=== PATIENT | male | born 1930 | race Caucasian/White ===

== ENCOUNTER 2017-09-30 08:38 | Emergency (ER) | payer MEDICARE, BC ==
[~2017-09-30] VITALS: Ht 172.7 cm; Wt 75.9 kg
[2017-09-30 08:56] VITALS: BP 122/63; PULSE 63; RESP 16; TEMP 97.8; O2SAT 95
[2017-09-30] MEDS ORDERED: ASPI1TAB57 PO (09:13)
[2017-09-30] MEDS ORDERED: VITAMIN D PO (09:13)
[2017-09-30] MEDS ORDERED: LOVA20TA PO (09:13)
[2017-09-30] MEDS ORDERED: TRIA1TAB5 PO (09:13)
--- NOTE | 2017-09-30 09:47 | PD ---
HPI Chief Complaint: GI Complaint Time Seen by Provider: 09:00 Travel History International Travel<30 days: No Contact w/Intl Traveler<30days: No Traveled to known affect area: No History of Present Illness HPI This 86-year-old male is been having loose stools for the last 12 days. He says he has had 3 or 4 bowel movements daily vitamin Janett than usual. She does not describe watery stools. Says that in 2010 he had similar symptoms he saw Dr. Nunez at that time and had a Gastrografin enema which seemed to fix them. In 2010 he had a barium enema. He gets regular colonoscopies and had his last one in 2011 and is had a sigmoid colectomy because of diverticulitis. He is not having abdominal pain. He has not had any blood or pus in the stool. He has not been on any antibiotics recently PFSH Past Medical History Hx Anticoagulant Therapy: Yes (BABY ASA 3 TIMES A WEEK) Cardiovascular Problems: Yes (HTN, CHOL) High Cholesterol: Yes Diabetes: No Patient Takes Glucophage: No Diminished Hearing: No Hypertension: Yes Tetanus Vaccination: < 5 Years Past Surgical History Other Surgery: Yes (INGUINAL HERNIA AND SIGMOID COLECTOMY) Social History Alcohol Use: Yes (RARE) Tobacco Use: No Substance Use: No Allergies-Medications Reported Meds & Prescriptions Reported Meds & Active Scripts Active Reported [Vitamin D] 50,000 PO Aspirin 81 (Aspirin) 81 Mg Tabdr 81 Mg PO DIRECTED Triamterene-Hydrochlorothiazide 75-50 Mg Tab 0.5 Tab PO DAILY Lovastatin 20 Mg Tab 20 Mg PO DAILY Review of Systems Except as stated in HPI: all other systems reviewed are Neg General / Constitutional: No: Fever, Chills Eyes: No: Diploplia HENT: No: Headaches Cardiovascular: No: Chest Pain or Discomfort Gastrointestinal: Positive: Diarrhea, No: Nausea, Vomiting, Abdominal Pain, Constipation Skin: No Rash, No Itching Endocrine: No: Heat Intolerance, Cold Intolerance Hematologic/Lymphatic: No: Easy Bruising Physical Exam Narrative GENERAL: [-] SKIN: Focused skin assessment warm/dry. HEAD: Atraumatic. Normocephalic. EYES: Pupils equal and round. No scleral icterus. No injection or drainage. ENT: No nasal bleeding or discharge. Mucous membranes pink and moist. NECK: Trachea midline. No JVD. CARDIOVASCULAR: Regular rate and rhythm. No murmur appreciated. RESPIRATORY: No accessory muscle use. Clear to auscultation. Breath sounds equal bilaterally. GASTROINTESTINAL: Abdomen soft, non-tender, nondistended. Hepatic and splenic margins not palpable. On rectal exam there is no stool present for guaiac testing. There are no masses palpable MUSCULOSKELETAL: No obvious deformities. No clubbing. No cyanosis. No edema. NEUROLOGICAL: Awake and alert. No obvious cranial nerve deficits. Motor grossly within normal limits. Normal speech. PSYCHIATRIC: Appropriate mood and affect; insight and judgment normal. Data Data Last Documented VS Vital Signs Date Time Temp Pulse Resp B/P (MAP) Pulse Ox O2 Delivery O2 Flow Rate FiO2 09/30/17 08:56 97.8 63 16 122/63 (82) 95 Room Air Orders Orders Abdomen, Kub Only (09/30/17 09:42) MDM Medical Decision Making Medical Screen Exam Complete: Yes Emergency Medical Condition: Yes Medical Record Reviewed: Yes Differential Diagnosis Differential includes constipation, enteritis, Narrative Course Patient has previously had these symptoms secondary to impaction and was having stools around the impaction. A KUB was done and does not show any evidence of impaction and clinically I do not think this is an impaction. She is having 3- 4 loose stools per day with his history of impaction I'm very reluctant to recommend Imodium. I think he should wait and I suspect this will normalize Diagnosis Primary Impression: Frequent bowel movements Disposition: 01 DISCHARGE HOME Condition: Stable Skyler Pierce MD Sep 30, 2017 09:47
--- NOTE | 2017-09-30 10:39 | RADRPT ---
EXAM DATE/TIME: 09/30/2017 10:10 [facility] COMPARISON: No previous studies available for comparison. INDICATIONS : Runny stools, no normal bowel movement x 1 week. MEDICAL HISTORY : Diverticulitis. SURGICAL HISTORY : laparscopic colectomy ENCOUNTER: Initial ACUITY: 1 week PAIN SCORE: 0/10 LOCATION: Bilateral abdomen FINDINGS: Supine view of the abdomen was performed. The abdominal bowel gas pattern is normal. No abnormal ma sses, calcifications, or organomegaly is seen. Degenerative changes lower lumbar spine.. CONCLUSION: Nonspecific bowel gas pattern. There is no evidence for obstruction. Degenerative c hanges lumbar spine. Harsh Gardner MD FACR on September 30, 2017 at 10:36 Board Certified Radiologist. This report was verified electronically.
[2017-09-30 11:53] VITALS: BP 131/73
== END 2017-09-30 11:53 | disposition home or self-care (01) ==
LOC: PHED 08:38
DX: R19.7 Diarrhea, unspecified (principal); E78.00 Pure hypercholesterolemia, unspecified; I10 Essential (primary) hypertension
CPT/HCPCS: 74018; 99283

== ENCOUNTER → 2017-10-12 | Outpatient (CLI) | payer MEDICARE, BC ==
[~2017-10-12] MED LIST: ASPI1TAB57 PO; LOVA20TA PO; TRIA1TAB5 PO; VITAMIN D PO
[2017-10-12 12:03] LABS: ALBUMIN 3.5 GM/DL (3.4-5.0); AST (GOT) 18 U/L (15-37); BICARBONATE 28.3 MEQ/L (21.0-32.0); BLOOD UREA NITROGEN 15 MG/DL (7-18); CALCIUM 10.1 MG/DL (8.5-10.1); CHLORIDE 107 MEQ/L (98-107); CREATININE 1.34 MG/DL (0.60-1.30); GLOMERULAR FILTRATION RATE 51 ML/MIN (>89); GLUCOSE,FASTING 91 MG/DL (74-99); SODIUM (NA) 142 MEQ/L (136-145)
[2017-10-12 12:07] LABS: ALKALINE PHOSPHATASE 53 U/L (45-117); ALT (GPT) 20 U/L (12-78); TOTAL BILIRUBIN ADULT 0.5 MG/DL (0.2-1.0); TOTAL PROTEIN 6.8 GM/DL (6.4-8.2)
[2017-10-12 12:11] LABS: AUTOMATED NEUTROPHIL # 4.6 TH/MM3 (1.8-7.7); BASOPHIL # 0.1 TH/MM3 (0-0.2); EOSINOPHIL # 0.3 TH/MM3 (0-0.4); EOSINOPHIL % 3.6 % (0.0-4.0); HEMATOCRIT 42.7 % (39.0-51.0); HEMOGLOBIN 14.2 GM/DL (13.0-17.0); LYMPH % 19.3 % (9.0-44.0); LYMPHOCYTE # 1.4 TH/MM3 (1.0-4.8); MEAN CELL VOLUME 91.5 FL (80.0-100.0); MEAN CORPUSCULAR HEMOGLOBIN 30.4 PG (27.0-34.0); MEAN CORPUSCULAR HGB CONC 33.2 % (32.0-36.0); MEAN PLATELET VOLUME 8.4 FL (7.0-11.0); MONO % 11.2 % (0.0-8.0); MONOCYTE # 0.8 TH/MM3 (0-0.9); NEUT % 64.9 % (16.0-70.0); PLATELET COUNT 244 TH/MM3 (150-450); RED BLOOD COUNT 4.67 MIL/MM3 (4.50-5.90); WHITE BLOOD COUNT 7.2 TH/MM3 (4.0-11.0)
== END ==
LOC: PLAB 08:11
PROVIDERS: ATTEND Family Medicine
DX: R19.7 Diarrhea, unspecified (principal); I10 Essential (primary) hypertension
CPT/HCPCS: 36415; 80053; 85025